=== PATIENT | male | born 1970 | race Caucasian/White ===

== ENCOUNTER 2017-09-28 12:08 | Emergency (ER) | payer BC, OTHER ==
[~2017-09-28] VITALS: Ht 172.7 cm; Wt 137.0 kg
--- NOTE | ~2017-09-28 | EKG ---
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
[2017-09-28 12:29] LABS: ABSOLUTE NEUTROPHILS 6.1 thou/uL (1.4-8.2); BASOPHILS 0.7 % (0.0-2.0); EOSINOPHILS 0.9 % (0.0-3.0); HEMATOCRIT 45.1 % (42.0-52.0); HEMOGLOBIN 15.5 gm/dL (14.0-18.0); LYMPHOCYTES 19.4 % (24.0-44.0); MCH 29.8 pg (26.0-34.0); MCHC 34.3 g/dL (28.0-37.0); MCV 86.8 fL (80.0-100.0); MONOCYTES 9.7 % (1.0-8.0); PLATELET COUNT 192 thou/uL (150-400); POLYS 69.3 % (36.0-66.0); WBC 8.7 thou/uL (4.0-11.0)
[2017-09-28 12:41] LABS: ANION GAP 6 mmol/L (7-16); BUN 9 mg/dL (7-18); CALCIUM 8.9 mg/dL (8.5-10.1); CHLORIDE 102 mmol/L (98-107); CO2 29 mmol/L (21-32); GLUCOSE 157 mg/dL (74-106); POTASSIUM 3.6 mmol/L (3.5-5.1); SODIUM 137 mmol/L (136-145)
[2017-09-28 12:46] LABS: TROPONIN-I <0.06 ng/mL (<0.06)
[2017-09-28] MEDS ORDERED: NORCO 5-325 TA1 EACH PO (13:10)
[2017-09-28] MEDS ORDERED: ACYCLOVIR 800800 MG PO (13:10)
[2017-09-28] MEDS ORDERED: NORVASC5 MG PO (13:10)
[2017-09-28 13:37] VITALS: BP 178/94
== END 2017-09-28 13:38 | disposition home or self-care (01) ==
LOC: ER 12:08
PROVIDERS: Emergency Medicine
DX: B02.9 Zoster without complications (principal); R07.9 Chest pain, unspecified; I16.0 Hypertensive urgency; E66.01 Morbid (severe) obesity due to excess calories; E78.00 Pure hypercholesterolemia, unspecified; Z68.45 Body mass index [BMI] 70 or greater, adult

== ENCOUNTER → 2017-10-19 | Outpatient (CLI) | payer OTHER ==
[~2017-10-19] MED LIST: ACYCLOVIR 800800 MG PO; NORCO 5-325 TA1 EACH PO; NORVASC5 MG PO
== END ==
LOC: CAT 15:36
DX: Z13.6 Encounter for screening for cardiovascular disorders (principal); E78.00 Pure hypercholesterolemia, unspecified

== ENCOUNTER → 2017-12-28 | Outpatient (CLI) | payer BC, OTHER ==
--- NOTE | ~2017-12-28 | SLE ---
[facility] [place] [place] [address] POLYSOMNOGRAPHY STUDY Name: PEDRO HANSON Room #: REG [facility]..#: [id number] Admission: 12/28/17 Attend Phys: Jose Ivory MD Discharge: Date of : 72 Report #: [id number] THIS REPORT FOR: //name// CC: Jose Rand MD DATE OF SERVICE: 12/28/2017 ATTENDING PHYSICIAN: Dr. Kashif Rand. The patient is 47-year-old who weighs 294 pounds and is 67 inches tall with a BMI of 46. The patient has a history of sleep apnea for which he has been on CPAP for the last 10 years. Current pressure is 17 cm water. The patient had some leak issues with the mask. Another CPAP titration study was requested and performed at [facility]. During the night of study, the patient spent 449 minutes in bed, slept for 396 minutes with a sleep efficiency of 88%. Sleep latency was 2.3 minutes with a REM latency of 45.3 minutes and both were short. Overall, sleep architecture showed increased stage 1 and stage 2 sleep, reduced N3 sleep and normal REM sleep. EKG monitoring revealed average heart rate of 71 beats per minute with a maximum of 103 beats per minute. No sustained arrhythmias were observed. No clinically significant PLM seen. The PLM index was only 2.6 per hour. The patient was started on CPAP at 5 cm water and titrated up to 19 cm water. Respiratory events were eliminated at a pressure of 17 cm water; however, further titration was done up to 19 cm water to eliminate snoring. At the final pressure, the patient slept for 39 minutes. The patient had no REM sleep, but supine sleep was seen throughout. However, at lower pressures, the patient had a long REM sleep and AHI was still less than 1 per hour. At the final pressure of 19 cm water, the patient's oxygen saturation remained above 95%. IMPRESSION: 1. Sleep apnea diagnosed previously. 2. No clinically significant PLMs. RECOMMENDATIONS: 1. CPAP at 19 cm water should be used on a nightly basis. 2. Follow up in 4-6 weeks to assess compliance with CPAP and to document clinical improvement. 3. Weight loss is strongly advised. 4. Avoid SUPERVISOR TELEPHONE INFORMATION depressants. [facility] [address] [place] [address] POLYSOMNOGRAPHY STUDY Name: PEDRO HANSON [place] [facility] [id number] Admission: 12/28/17 Attend Phys: Jose Ivory MD Discharge: Date of : 72 Report #: [id number] 5. Cautioned regarding driving until symptoms of sleep apnea resolve with the use of CPAP. <ELECTRONICALLY SIGNED> By: Jose Ivory MD 12/29/17 1834 1235 1256 Jose Ivory MD /nt
== END ==
LOC: SLEEPLAB 13:24
DX: G47.33 Obstructive sleep apnea (adult) (pediatric) (principal)

== ENCOUNTER → 2018-06-02 | Outpatient (CLI) | payer BC, OTHER ==
--- NOTE | 2018-06-03 09:23 | EKG ---
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 : 1970 Requested By: Physician staff Order Number: [id number] MD: Bryon Lucas Measurements Intervals [place] Rate: 91 P: 14 [place]: 158 QRS: 17 QRSD: 100 T: 40 QT: 338 QTc: 416 Interpretive Statements Sinus rhythm Normal tracing Compared to ECG 09/28/2017 12:11:38 No significant changes Electronically Signed On 06-03-2018 9:23:18 CDT by Bryon Lucas [email or web address] ��������������������������������������������� <ELECTRONICALLY SIGNED> ���������������������������������������� By: Bryon Lucas MD, [facility] ��������������������������������������������� 06/03/18 0923 1703 03 Bryon Lucas MD, FACC /EPI
== END ==
LOC: CV 16:27
DX: Z01.818 Encounter for other preprocedural examination (principal); I10 Essential (primary) hypertension; E11.9 Type 2 diabetes mellitus without complications

== ENCOUNTER 2018-06-19 17:33 | Inpatient (IN) | payer BC, OTHER ==
[~2018-06-19] VITALS: Ht 172.7 cm; Wt 125.4 kg
[2018-06-19 19:53] VITALS: BP 138/79
[2018-06-19 19:56] LABS: ABSOLUTE NEUTROPHILS 11.2 thou/uL (1.4-8.2); BASOPHILS 0.9 % (0.0-2.0); EOSINOPHILS 1.3 % (0.0-3.0); HEMATOCRIT 41.3 % (42.0-52.0); HEMOGLOBIN 14.4 gm/dL (14.0-18.0); LYMPHOCYTES 13.4 % (24.0-44.0); MCH 30.1 pg (26.0-34.0); MCHC 34.9 g/dL (28.0-37.0); MONOCYTES 10.1 % (1.0-8.0); PLATELET COUNT 206 thou/uL (150-400); POLYS 74.3 % (36.0-66.0); RBC 4.81 mil/uL (4.50-6.00); RDW 13.6 % (10.5-14.5); WBC 15.1 thou/uL (4.0-11.0)
[2018-06-19 20:00] LABS: URINE BILIRUBIN NEGATIVE (Negative); URINE BLOOD NEGATIVE (Negative); URINE CLARITY CLEAR; URINE COLOR YELLOW; URINE GLUCOSE-RANDOM* NEGATIVE (Negative); URINE KETONES TRACE (Negative); URINE LEUKOCYTES-REFLEX NEGATIVE (Negative); URINE NITRITE-REFLEX NEGATIVE (Negative); URINE PROTEIN (DIPSTICK) NEGATIVE (Negative); URINE SPECIFIC GRAVITY >= 1.030 (1.005-1.035); URINE UROBILINOGEN 0.2 E.U./dl (0.2-1.0)
[2018-06-19 20:52] LABS: ALBUMIN 3.3 g/dL (3.4-5.0); CREATININE 1.1 mg/dL (0.7-1.3); DIRECT BILIRUBIN 0.1 mg/dL (<0.1-0.3); POTASSIUM 3.5 mmol/L (3.5-5.1); TOTAL BILIRUBIN 0.5 mg/dL (<0.1-1.0); TOTAL PROTEIN 7.1 g/dL (6.4-8.2)
[2018-06-19 23:55] VITALS: BP 121/72
[2018-06-19 23:56] VITALS: BP 121/72
[2018-06-20 00:15] VITALS: BP 107/92
--- NOTE | 2018-06-20 04:30 | NUR ---
PT ARRIVED FROM ED APPROX. 0015. ADMISSION COMPLETE. VSS. IV DRESSING C/D/I. PT RPORTS PAIN. DENIES N/V. PT AT BEDSIDE. PT CALL LIGHT WITHIN REACH, WILL CONTINUE POC UNTIL EOS.
[2018-06-20 05:00] VITALS: BP 130/84
[2018-06-20 08:21] VITALS: BP 144/92
[2018-06-20 09:46] LABS: ABSOLUTE NEUTROPHILS 8.1 thou/uL (1.4-8.2); BASOPHILS 0.8 % (0.0-2.0); EOSINOPHILS 1.1 % (0.0-3.0); HEMATOCRIT 42.3 % (42.0-52.0); HEMOGLOBIN 14.4 gm/dL (14.0-18.0); LYMPHOCYTES 17.9 % (24.0-44.0); MCH 29.5 pg (26.0-34.0); MCV 86.7 fL (80.0-100.0); MONOCYTES 8.6 % (1.0-8.0); PLATELET COUNT 193 thou/uL (150-400); POLYS 71.6 % (36.0-66.0); RBC 4.88 mil/uL (4.50-6.00); RDW 13.5 % (10.5-14.5); WBC 11.3 thou/uL (4.0-11.0)
--- NOTE | 2018-06-20 12:50 | NUR ---
ASSESMENT COMPLETED. VSS. A/O. PAIN MANAGED BY MEDS ORDERED. NO NOTED SOA. NO NV. UP WITH STAND BY. PT RESTING IN BED APPEARS COMFORTABLE. WILL CONT. TO MONITOR.
[2018-06-20 19:52] VITALS: BP 147/83
[2018-06-21 04:49] VITALS: BP 135/89
--- NOTE | 2018-06-21 05:31 | NUR ---
ASSUMED PT CARE 1900. PT ALERT AND ORIENTED. REASSESSMENT COMPLETE. VSS. IV DRESSING C/D/I, NO SIGNS OF INFILTRATION. PT REPORTS SWELLING IN HANDS HAS INCREASED AND PAIN HAS MOVED INTO HIS JAW, SEE EMAR. PT DENIES N/V. PT CALL LIGHT WITHIN REACH. WILL CONTINUE POC UNTIL EOS.
--- NOTE | 2018-06-21 07:57 | NUR ---
RECEIVED PT APPROX 0700. A/O. C/O PAIN ON HAND/JAW/SHOULDERS. PT STATING HE FEELS IT'S RADIATING TO HIS HIPS. PT TEARFUL WONDERING WHAT'S GOING ON. NO SOA. CPAP AT [facility]. PT RESTING IN BED APPEARS COMFORTABLE. WILL CONT. TO MONITOR.
[2018-06-21 08:05] VITALS: BP 141/88
--- NOTE | 2018-06-21 14:20 | NUR ---
PT ADMITTED RELATED TO FATIGUE, WEAKNESS. CM REVIEWED CHART AND SPOKE WITH CARE TEAM. CM MET WITH PT AT BEDSIDE THIS DAY. PT IS A&0 X4. CM ROLE INTRODUCED. PT INDICATED THAT HE LIVES IN A HOSUE WITH HIS SPOUSE WITH 12 STEPS TO ENTER AND NO STEPS INSIDE. 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 PT INDICATED NO HH OR OP THERAPY HISTORY. PT INDICATED HE PLANS TO RETURN HOME ONCE MEDICALLY STABLE. CM TO FOLLOW INDICATED WITH DC PLANNING.
[2018-06-21 17:18] VITALS: BP 135/77
--- NOTE | 2018-06-21 18:33 | NUR ---
NO CHANGE SINCE AM ASSESMENT.
[2018-06-22 04:06] VITALS: BP 135/86
--- NOTE | 2018-06-22 04:32 | NUR ---
ASSUMED PT CARE 1899. REASSESSMENT COMPLETE. VSS. IV DRESSING C/D/I, NO SIGNS OF INFITLRATION. PT DENIES N/V. PT REPORTS PAIN, SEE EMAR. PT CALL LIGHT WITHIN REACH, WILL CONTINUE POC UNTIL EOS.
[2018-06-22 07:53] VITALS: BP 156/83
[2018-06-22 08:30] LABS: HEMATOCRIT 39.3 % (42.0-52.0); HEMOGLOBIN 13.2 gm/dL (14.0-18.0); MCH 29.2 pg (26.0-34.0); MCHC 33.6 g/dL (28.0-37.0); MCV 86.8 fL (80.0-100.0); RBC 4.53 mil/uL (4.50-6.00); RDW 13.2 % (10.5-14.5); WBC 8.1 thou/uL (4.0-11.0)
--- NOTE | 2018-06-22 12:37 | NUR ---
Assess for high BMI 42.1=extreme class III obesity. Admit with fatigue, weakness, fever. Recent surgical hernia repair few weeks ago. Pt reported initial poor intake, but now eating much better. Usual wts around 290 lb. BG elevated and has started back on metformin. Voiced no dietary questions, hoping to go home today. Low nutrition risk
--- NOTE | 2018-06-22 13:03 | NUR ---
PATIENT EXPRESSED MINIMAL PAIN THIS MORNING. HE IS ABLE TO AMBULATE WITH NO ASSIST. METFORMIN WAS HELD DUE TO CONTRAST DYE ON 06/20. PATIENT IS FEELING MUCH BETTER AND READY TO GO HOME.
--- NOTE | 2018-06-22 13:12 | NUR ---
I have reviewed and concur with student documentation.
[2018-06-22] MEDS ORDERED: METHOCARBAMOL500 M1 PO (13:45)
[2018-06-22] MEDS ORDERED: PERCOCET 10-321 EACH PO (13:45)
[2018-06-22] MEDS ORDERED: AUGMENTIN 875-1 EACH PO (13:47)
[2018-06-22 14:13] VITALS: BP 156/83
--- NOTE | 2018-06-22 14:57 | NUR ---
PT ASSESSED AT START OF SHIFT. PT FEELING MUCH BETTER. AFEBRILE. PAIN IN ABHI ARMS AND HANDS MUCH BETTER AND SWELLING IN HANDS DECRESING. RECEIVING LAST DOSE OF IV ZOSYN AND WILL BE DISCHARGED AFTER INFUSED.
[2018-06-22 15:05] VITALS: BP 156/83
[2018-06-22 15:40] VITALS: BP 150/81
== END 2018-06-22 18:40 | disposition home or self-care (01) | DRG 872 ==
LOC: ER 17:33 → 4E 23:38 → EROBS 23:38 → 4E 06-20 → ENTRNSPT 06-22 18:34 → 4E 06-22 18:40
PROVIDERS: Emergency Medicine; Surgery; ADMIT Family Medicine
DX: A41.9 Sepsis, unspecified organism (principal); K59.00 Constipation, unspecified; F17.210 Nicotine dependence, cigarettes, uncomplicated; M79.10 Myalgia, unspecified site; I10 Essential (primary) hypertension; E78.00 Pure hypercholesterolemia, unspecified; Z79.899 Other long term (current) drug therapy
CPT/HCPCS: 10783

== ENCOUNTER 2019-06-03 11:05 | Emergency (ER) | payer BC, OTHER ==
[~2019-06-03] VITALS: Ht 172.7 cm; Wt 131.5 kg
[~2019-06-03 11:05] MED LIST changes: +AUGMENTIN 875-1 EACH PO; +METHOCARBAMOL500 M1 PO; +PERCOCET 10-321 EACH PO
[2019-06-03 12:07] LABS: ABSOLUTE NEUTROPHILS 6.9 thou/uL (1.4-8.2); BASOPHILS 0.6 % (0.0-2.0); EOSINOPHILS 1.2 % (0.0-3.0); HEMATOCRIT 48.4 % (42.0-52.0); HEMOGLOBIN 16.5 gm/dL (14.0-18.0); LYMPHOCYTES 15.9 % (24.0-44.0); MCH 30.6 pg (26.0-34.0); MCHC 34.1 g/dL (28.0-37.0); MCV 89.8 fL (80.0-100.0); MONOCYTES 9.7 % (1.0-8.0); PLATELET COUNT 207 thou/uL (150-400); POLYS 72.6 % (36.0-66.0); RBC 5.39 mil/uL (4.50-6.00); WBC 9.5 thou/uL (4.0-11.0)
[2019-06-03 12:13] LABS: ANION GAP 8 mmol/L (7-16); BUN 14 mg/dL (7-18); CALCIUM 9.4 mg/dL (8.5-10.1); CHLORIDE 101 mmol/L (98-107); CO2 27 mmol/L (21-32); CREATININE 0.9 mg/dL (0.7-1.3); GLUCOSE 107 mg/dL (74-106); POTASSIUM 3.7 mmol/L (3.5-5.1); SODIUM 136 mmol/L (136-145)
[2019-06-03 12:22] LABS: ALBUMIN 4.1 g/dL (3.4-5.0); SGOT 23 U/L (15-37); SGPT 40 U/L (30-65); TOTAL BILIRUBIN 0.6 mg/dL (<0.1-1.0); TOTAL PROTEIN 7.8 g/dL (6.4-8.2); TROPONIN-I <0.06 ng/mL (<0.06)
[2019-06-03 13:17] LABS: URINE BILIRUBIN NEGATIVE (Negative); URINE BLOOD NEGATIVE (Negative); URINE CLARITY CLEAR; URINE COLOR YELLOW; URINE GLUCOSE-RANDOM* 3+ (Negative); URINE KETONES NEGATIVE (Negative); URINE LEUKOCYTES-REFLEX NEGATIVE (Negative); URINE NITRITE-REFLEX NEGATIVE (Negative); URINE PROTEIN (DIPSTICK) NEGATIVE (Negative); URINE UROBILINOGEN 0.2 E.U./dl (0.2-1.0)
[2019-06-03] MEDS ORDERED: ZPAK PO (13:27)
[2019-06-03 13:40] VITALS: BP 134/74
--- NOTE | 2019-06-05 13:00 | EKG ---
[facility] [place] [place] [address] ELECTROCARDIOGRAM REPORT Name: PEDRO HANSON FLUSHING [facility] [id number] Admission: 06/03/19 Attend Phys: Discharge: 06/03/19 Date of : 72 Report #: [id number] THIS REPORT FOR: cc: Spenser Lopez MD, Neal A. MD Couchonnal, Luis F. MD ~ THIS REPORT FOR: //name// 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
== END 2019-06-03 13:40 | disposition home or self-care (01) ==
LOC: ER 11:05
PROVIDERS: Physician Assistant
DX: M79.632 Pain in left forearm (principal); M79.10 Myalgia, unspecified site; R53.83 Other fatigue; I10 Essential (primary) hypertension; E78.00 Pure hypercholesterolemia, unspecified; Z20.828 Contact with and (suspected) exposure to other viral communicable diseases

== ENCOUNTER → 2020-12-11 | Outpatient (CLI) | payer BC, OTHER ==
[~2020-12-11] MED LIST changes: +ZPAK PO
== END ==
LOC: RAD 14:54
PROVIDERS: ATTEND Nurse Practitioner
DX: M47.22 Other spondylosis with radiculopathy, cervical region (principal); M25.78 Osteophyte, vertebrae